=== PATIENT | male | born 1975 | race Two or more races ===

== ENCOUNTER → 2020-11-23 | Outpatient (CLI) | payer OTHER ==
--- NOTE | 2020-11-23 14:38 | KCIC ---
EXAM: AP, lateral and lumbosacral spot views with bilateral oblique views of the lumbar spine DATE: 11/23/2020 10:15 AM INDICATION: Acute bilateral LBP without sciatica COMPARISON: No Prior FINDINGS: Vertebral body heights are preserved. Disc heights are preserved. On the oblique views, no definite p ars defects are seen. No spondylolisthesis. No acute fracture. Moderate colonic stool content. IMPRESSION: 1. Multilevel spondylosis as above 2. Negative acute fracture or subluxation. Electronically signed by: Harrison Verde MD (11/23/2020 2:35 PM) [facility]ESS
== END ==
LOC: KCIC 10:12
PROVIDERS: ATTEND Family Medicine
DX: M47.816 Spondylosis without myelopathy or radiculopathy, lumbar region (principal)
CPT/HCPCS: 72110